=== PATIENT | male | born 1940 | race Caucasian/White ===

== ENCOUNTER 2016-06-22 13:29 | Outpatient (CLI) | payer MEDICARE, OTHER | END 2016-06-22 13:30 | disposition home or self-care (01) | DX: I48.92 Unspecified atrial flutter (principal); Z79.01 Long term (current) use of anticoagulants; Z79.899 Other long term (current) drug therapy ==

== ENCOUNTER 2016-07-27 13:37 | Outpatient (CLI) | payer MEDICARE, OTHER | END 2016-07-27 13:38 | disposition home or self-care (01) | DX: I48.92 Unspecified atrial flutter (principal); Z79.01 Long term (current) use of anticoagulants; Z79.899 Other long term (current) drug therapy ==

== ENCOUNTER 2016-09-07 15:16 | Outpatient (CLI) | payer MEDICARE, OTHER | END 2016-09-07 15:17 | disposition home or self-care (01) | DX: I25.2 Old myocardial infarction (principal); I48.92 Unspecified atrial flutter ==

== ENCOUNTER 2016-09-21 11:00 | Outpatient (CLI) | payer MEDICARE, OTHER | END 2016-09-21 11:01 | disposition home or self-care (01) | DX: G47.33 Obstructive sleep apnea (adult) (pediatric) (principal) | CPT/HCPCS: 99203; G0463 ==

== ENCOUNTER 2016-09-22 20:34 | Outpatient (CLI) | payer MEDICARE, OTHER | END 2016-09-22 20:35 | disposition home or self-care (01) | DX: G47.33 Obstructive sleep apnea (adult) (pediatric) (principal); Z68.34 Body mass index [BMI] 34.0-34.9, adult ==

== ENCOUNTER 2016-09-29 14:26 | Outpatient (CLI) | payer MEDICARE, OTHER | END 2016-09-29 14:27 | disposition home or self-care (01) | DX: G47.33 Obstructive sleep apnea (adult) (pediatric) (principal) | CPT/HCPCS: 99213; G0463 ==

== ENCOUNTER 2016-10-01 14:07 | Outpatient (CLI) | payer MEDICARE, OTHER | END 2016-10-01 23:59 | DX: I48.92 Unspecified atrial flutter (principal); Z79.01 Long term (current) use of anticoagulants; Z79.899 Other long term (current) drug therapy ==

== ENCOUNTER 2016-10-07 21:12 | Outpatient (CLI) | payer MEDICARE, OTHER | END 2016-10-07 21:13 | disposition home or self-care (01) | DX: G47.33 Obstructive sleep apnea (adult) (pediatric) (principal); R09.02 Hypoxemia; Z68.34 Body mass index [BMI] 34.0-34.9, adult ==

== ENCOUNTER 2016-10-21 08:59 | Outpatient (CLI) | payer MEDICARE, OTHER | END 2016-10-21 09:00 | disposition home or self-care (01) | LOC: SC 08:59 | PROVIDERS: ATTEND Nurse Practitioner Family | DX: G47.33 Obstructive sleep apnea (adult) (pediatric) (principal); R09.02 Hypoxemia | CPT/HCPCS: 99214; G0463; 99212 ==

== ENCOUNTER 2016-11-08 13:20 | Outpatient (CLI) | payer MEDICARE, OTHER | END 2016-11-08 13:21 | disposition home or self-care (01) | LOC: LAB.F 13:20 | PROVIDERS: ATTEND Internal Medicine Cardiovascular Disease | DX: I48.92 Unspecified atrial flutter (principal); Z79.01 Long term (current) use of anticoagulants; Z79.899 Other long term (current) drug therapy | CPT/HCPCS: 85610 ==

== ENCOUNTER 2016-12-09 13:02 | Outpatient (CLI) | payer MEDICARE, OTHER | END 2016-12-09 13:03 | disposition home or self-care (01) | LOC: SC 13:02 | PROVIDERS: ATTEND Nurse Practitioner Family | DX: G47.33 Obstructive sleep apnea (adult) (pediatric) (principal); R09.02 Hypoxemia | CPT/HCPCS: 99214; G0463; 99212 ==

== ENCOUNTER 2016-12-20 10:27 | Outpatient (CLI) | payer MEDICARE, OTHER ==
--- NOTE | 2016-12-21 08:30 | XRAY Report ---
CHEST, PA AND LATERAL: 12/20/2016 CLINICAL HISTORY: Shortness of breath on exertion. COMPARISON: 05/14/2013 FINDINGS: Sternal wire sutures are seen. Mild anterior spurring is noted in the thoracic spine with minimal disk space narrowing in the mid thoracic spine. Borderline heart size is noted with vascular calcification of the aortic arch. Mediastinum is not wi dened. Pulmonary parenchyma appears improved as compared to preceding exam. Thickening of the fissu res is no longer evident. Decrease in previously noted mild interstitial parenchymal disease in the right lower lobe is noted. Present exam demonstrates no significant congestive heart failure. No pn eumonia is seen. There is a suggestion of some minor granulomatous calcifications in and about each hilar region. IMPRESSION: 1. BORDERLINE HEART SIZE WITH STERNAL WIRE SUTURES SEEN. 2. IMPROVEMENT IS NOTED IN THE LUNGS COMPARED TO PRECEDING EXAM DATED 05/14/2013. CONGESTIVE HEA RT FAILURE AND PNEUMONIA ARE NOT SEEN. 3. MINIMAL EVIDENCE OF OLD GRANULOMATOUS DISEASE. JOB #: [id number] EXT JOB #:[id number]
== END 2016-12-20 10:28 | disposition home or self-care (01) ==
LOC: LAB.F 10:27
PROVIDERS: ATTEND Internal Medicine Cardiovascular Disease
DX: I48.92 Unspecified atrial flutter (principal); Z79.01 Long term (current) use of anticoagulants; Z79.899 Other long term (current) drug therapy; J84.89 Other specified interstitial pulmonary diseases; R06.00 Dyspnea, unspecified
CPT/HCPCS: 36415; 71020; 80048; 83880; 85610

== ENCOUNTER 2016-12-20 13:29 | Outpatient (CLI) | payer MEDICARE, OTHER ==
[2016-12-20 19:07] LABS: CALCIUM 9.1 mg/dL (8.5-10.3); CREATININE 1.7 mg/dL (0.6-1.2); POTASSIUM 4.2 mmol/L (3.5-5.0)
== END 2016-12-20 13:30 | disposition home or self-care (01) ==
LOC: LAB.S 13:29
PROVIDERS: ATTEND Nurse Practitioner Family
DX: R06.00 Dyspnea, unspecified (principal)
CPT/HCPCS: 36415; 80048; 83880

== ENCOUNTER 2017-01-10 13:34 | Outpatient (CLI) | payer MEDICARE, OTHER | END 2017-01-10 13:35 | disposition home or self-care (01) | LOC: SC 13:34 | PROVIDERS: ATTEND Nurse Practitioner Family | DX: G47.33 Obstructive sleep apnea (adult) (pediatric) (principal) | CPT/HCPCS: 99214; G0463; 99212 ==

== ENCOUNTER 2017-01-11 15:57 | Emergency (ER) | payer MEDICARE, OTHER ==
[2017-01-11 16:33] LABS: BASOPHILS # (AUTO) 0.2 10^3/uL (0.0-0.1); BASOPHILS % (AUTO) 1.9 %; EOSINOPHILS # (AUTO) 0.4 10^3/uL (0.0-0.7); HCT - HEMATOCRIT 35.9 % (42.0-52.0); HGB - HEMOGLOBIN 12.1 g/dL (14.0-18.0); LYMPHOCYTES # (AUTO) 4.3 10^3/uL (1.5-3.5); LYMPHOCYTES % (AUTO) 35.8 %; MEAN CORPUSCULAR HEMOGLOBIN 32.8 pg (27.0-31.0); MEAN CORPUSCULAR HGB CONC 33.7 g/dL (32.0-36.0); MEAN CORPUSCULAR VOLUME 97.3 fL (80.0-94.0); MEAN PLATELET VOLUME 8.7 fL (7.4-11.4); MONOCYTES # (AUTO) 1.4 10^3/uL (0.0-1.0); MONOCYTES % (AUTO) 11.4 %; NEUTROPHILS # (AUTO) 5.8 10^3/uL (1.5-6.6); NEUTROPHILS % (AUTO) 47.9 %; RED BLOOD COUNT 3.69 10^6/uL (4.70-6.10); RED CELL DISTRIBUTION WIDTH 14.7 % (12.0-15.0); UNCORRECTED WHITE BLOOD COUNT 12.1 x10^3/uL; WHITE BLOOD COUNT 12.1 x10^3/uL (4.8-10.8)
[2017-01-11 16:47] LABS: ALBUMIN/GLOBULIN RATIO 1.2 (1.0-2.2); BILIRUBIN,TOTAL 0.4 mg/dL (0.2-1.0); CREATININE 1.4 mg/dL (0.6-1.2); POTASSIUM 4.4 mmol/L (3.5-5.0)
--- NOTE | 2017-01-11 17:22 | ED Physician Documentation ---
History of Present Illness - Stated complaint Stated Complaint: CHEST PX/ WEAKNESS - Chief complaint Chief Complaint: Cardiac - Additonal information Additional information: hx from pt 76 male severe heart dz s/p triple CABG 2 stents and ballon angioplasty take imdur and renexa daily for chronic angina last three days has had new and fif chest pressure with exertion relieved by rest lasting up to 2 hr at a time no sig SOA, no dipahoresis NV always has kim pain but no new neck back abd pain no travel no new leg swelling Review of Systems Constitutional: denies: Fever, Chills Cardiac: reports: Chest pain / pressure Respiratory: denies: Dyspnea GI: denies: Abdominal Pain, Nausea, Vomiting Musculoskeletal: reports: Extremity swelling (not new) Neurologic: denies: Generalized weakness Endocrine: denies: Easy bruising / bleeding Immunocompromised: denies: Immunocompromised PD PAST MEDICAL HISTORY - Past Medical History Cardiovascular: Hypertension, Coronary artery disease Respiratory: CPAP use Endocrine/Autoimmune: Type 2 diabetes GI: Ulcers HEENT: Chronic sinusitis Psych: None Musculoskeletal: None Derm: None - Past Surgical History Past Surgical History: Yes General: Splenectomy Ortho: Arthroscopic surgery Cardiovascular: CABG, Coronary stent HEENT: Tonsil/Adenoidectomy - Present Medications Home Medications: Ambulatory Orders Medication Instructions Recorded Confirmed Atenolol 25 mg PO DAILY 11/09/12 01/11/17 Glyburide 2.5 mg PO DAILY 11/09/12 01/11/17 Hydrochlorothiazide 25 mg PO DAILY 11/09/12 01/11/17 Losartan [Cozaar] 50 mg PO DAILY 11/09/12 01/11/17 Metformin HCl 1,000 mg PO DAILY 11/09/12 01/11/17 Metformin HCl [Glucophage Xr] 500 mg PO HS 11/09/12 01/11/17 Pravastatin Sodium 40 mg PO HS 11/09/12 01/11/17 Clopidogrel [Plavix] 75 mg PO DAILY 01/11/17 01/11/17 Warfarin Sodium [Coumadin] 6 mg PO 01/11/17 - Allergies Allergies/Adverse Reactions: Allergies Allergy/AdvReac Type Severity Reaction Status Date / Time No Known Drug Allergies Allergy Verified 01/11/17 16:04 - Social History Does the pt smoke?: Yes Smoking Status: Former smoker Does the pt drink ETOH?: No Does the pt have substance abuse?: No - Immunizations Immunizations are current?: Yes PD ED PE NORMAL - Vitals Vital signs reviewed: Yes (rr is not 75) - General General: Alert and oriented X 3 - Cardiac Cardiac: RRR - Respiratory Respiratory: No respiratory distress, Clear bilaterally - Abdomen Abdomen: Soft, Non tender - Derm Derm: Normal color - Extremities Extremities: No deformity, Other (mild pepe symm edema s TTP) - Neuro Neuro: Alert and oriented X 3 Results - Vitals Vitals: Vital Signs - 24 hr 01/11/17 01/11/17 16:01 17:57 Temperature 36.6 C 36.6 C Heart Rate 75 72 Respiratory 75 H 15 Rate Blood Pressure 144/79 H 136/56 H O2 Saturation 96 95 Oxygen O2 Source Room air - EKG (time done) 1617 Rate: Rate (enter#) (71) Rhythm: NSR Intervals: LBBB - Labs Labs: Laboratory Tests 01/11/17 01/11/17 01/11/17 16:10 16:10 16:10 WBC 12.1 H RBC 3.69 L Hgb 12.1 L Hct 35.9 L MCV 97.3 H MCH 32.8 H MCHC 33.7 RDW 14.7 Plt Count 342 MPV 8.7 Neut # 5.8 Lymph # 4.3 H Schuyler # 1.4 H Eos # 0.4 Baso # 0.2 H Absolute Nucleated RBC 0.01 Nucleated RBCs 0.0 Whole Blood INR Sodium 135 Potassium 4.4 Chloride 103 Carbon Dioxide 24 Anion Gap 8.0 BUN 29 H Creatinine 1.4 H Estimated GFR (MDRD) 49 L Glucose 116 H Calcium 9.0 Total Bilirubin 0.4 AST 20 ALT 17 Alkaline Phosphatase 53 Troponin I < 0.04 Total Protein 7.0 Albumin 3.8 Globulin 3.2 Albumin/Globulin Ratio 1.2 Lipase 31 01/11/17 18:22 WBC RBC Hgb Hct MCV MCH MCHC RDW Plt Count MPV Neut # Lymph # Schuyler # Eos # Baso # Absolute Nucleated RBC Nucleated RBCs Whole Blood INR 2.4 H Sodium Potassium Chloride Carbon Dioxide Anion Gap BUN Creatinine Estimated GFR (MDRD) Glucose Calcium Total Bilirubin AST ALT Alkaline Phosphatase Troponin I Total Protein Albumin Globulin Albumin/Globulin Ratio Lipase - Rads (name of study) cxr Radiology: See rad report (nacpd) PD MEDICAL DECISION MAKING - ED course ED course: exertional angina beyond his baseline stable angina already on plavix coumadin BB agata and fabrizio feel this complex cardiac pt exceed the care available at (may need a cath) so called and spoke to cardio production team advisor Dr Rascon who accepts pt in transfer pt is pain free at rest in the ER at this time - already on all the above meds - so no need to give asa BB nitro heparin etc unless sx change Departure - Departure Disposition: 02 Transfer Acute Care Hosp Clinical Impression: Unstable angina
[2017-01-11 17:58] VITALS: BP 136/56
--- NOTE | 2017-01-11 18:16 | XRAY Preliminary Report ---
Exam: XR Chest 1 View IMPRESSION: No acute intrathoracic plain film abnormality. [facility] SITE ID: [id number]
--- NOTE | 2017-01-11 18:19 | XRAY Report ---
EXAM: CHEST RADIOGRAPHY EXAM DATE: 01/11/2017 05:07 PM. CLINICAL HISTORY: Chest pain. COMPARISON: None. TECHNIQUE: 1 view. FINDINGS: Lungs/Pleura: No focal opacities evident. No pleural effusion. No pneumothorax. Mediastinum: Patient has undergone median sternotomy. There is cardiomegaly. There is thoracic aortic calcification. Other: None. IMPRESSION: No acute intrathoracic plain film abnormality. [facility] Referring Provider Line: [phone] SITE ID: [id number]
== END 2017-01-11 20:10 | disposition short-term general hospital (02) ==
LOC: ED 15:57
DX: I25.110 Atherosclerotic heart disease of native coronary artery with unstable angina pectoris (principal); Z95.1 Presence of aortocoronary bypass graft; Z79.01 Long term (current) use of anticoagulants; I44.7 Left bundle-branch block, unspecified; R94.31 Abnormal electrocardiogram [ECG] [EKG]; I10 Essential (primary) hypertension; E11.9 Type 2 diabetes mellitus without complications; Z79.84 Long term (current) use of oral hypoglycemic drugs; Z87.11 Personal history of peptic ulcer disease; Z87.891 Personal history of nicotine dependence
CPT/HCPCS: 36415; 71010; 80053; 83690; 84484; 85025; 85610; 93005; 99283; 99284

== ENCOUNTER 2017-01-11 20:12 | Outpatient (CLI) | payer MEDICARE, OTHER | END 2017-01-11 20:13 | disposition short-term general hospital (02) | LOC: EMS 20:12 | PROVIDERS: ATTEND Surgery | DX: I20.0 Unstable angina (principal) | CPT/HCPCS: A0425; A0428 ==

== ENCOUNTER 2017-01-19 15:14 | Outpatient (CLI) | payer MEDICARE, OTHER | END 2017-01-19 15:15 | disposition home or self-care (01) | LOC: LAB.F 15:14 | PROVIDERS: ATTEND Nurse Practitioner Family | DX: I48.92 Unspecified atrial flutter (principal); Z79.01 Long term (current) use of anticoagulants; Z79.899 Other long term (current) drug therapy | CPT/HCPCS: 85610 ==

== ENCOUNTER 2017-01-21 11:51 | Outpatient (CLI) | payer MEDICARE, OTHER | END 2017-01-21 11:52 | disposition home or self-care (01) | LOC: LAB 11:51 | PROVIDERS: ATTEND Internal Medicine Cardiovascular Disease | DX: I48.92 Unspecified atrial flutter (principal); Z79.01 Long term (current) use of anticoagulants; Z79.899 Other long term (current) drug therapy | CPT/HCPCS: 85610 ==

== ENCOUNTER 2017-01-26 13:18 | Outpatient (CLI) | payer MEDICARE, OTHER ==
[2017-01-26] MEDS ORDERED: ALBUTEROL NEB 2.5 MG/3 ML INH ONE (15:00)
== END 2017-01-26 13:19 | disposition home or self-care (01) ==
LOC: RT 13:18
PROVIDERS: ATTEND Nurse Practitioner Family
DX: J44.9 Chronic obstructive pulmonary disease, unspecified (principal); R06.09 Other forms of dyspnea
CPT/HCPCS: 94060; 94664; 94729; J7613

== ENCOUNTER 2017-01-31 08:00 | Outpatient (CLI) | payer MEDICARE, OTHER | END 2017-01-31 08:01 | disposition home or self-care (01) | LOC: LAB.F 08:00 | PROVIDERS: ATTEND Internal Medicine Cardiovascular Disease | DX: I48.92 Unspecified atrial flutter (principal); Z79.01 Long term (current) use of anticoagulants; Z79.899 Other long term (current) drug therapy | CPT/HCPCS: 85610 ==

== ENCOUNTER 2017-02-15 11:21 | Outpatient (CLI) | payer MEDICARE, OTHER | END 2017-02-15 11:22 | disposition home or self-care (01) | LOC: LAB 11:21 | PROVIDERS: ATTEND Internal Medicine Cardiovascular Disease | DX: I48.92 Unspecified atrial flutter (principal); Z79.01 Long term (current) use of anticoagulants; Z79.899 Other long term (current) drug therapy | CPT/HCPCS: 85610 ==

== ENCOUNTER 2017-03-03 10:46 | Outpatient (CLI) | payer MEDICARE, OTHER | END 2017-03-03 10:47 | disposition home or self-care (01) | LOC: LAB.F 10:46 | PROVIDERS: ATTEND Internal Medicine Cardiovascular Disease | DX: I48.92 Unspecified atrial flutter (principal); Z79.01 Long term (current) use of anticoagulants; Z79.899 Other long term (current) drug therapy | CPT/HCPCS: 85610 ==

== ENCOUNTER 2017-03-24 10:52 | Outpatient (CLI) | payer MEDICARE, OTHER | END 2017-03-24 10:53 | disposition home or self-care (01) | LOC: LAB.F 10:52 | PROVIDERS: ATTEND Internal Medicine Cardiovascular Disease | DX: I48.92 Unspecified atrial flutter (principal); Z79.01 Long term (current) use of anticoagulants; Z79.899 Other long term (current) drug therapy | CPT/HCPCS: 85610 ==

== ENCOUNTER 2017-04-19 09:36 | Outpatient (CLI) | payer MEDICARE, OTHER | END 2017-04-19 09:37 | disposition home or self-care (01) | LOC: LAB.F 09:36 | PROVIDERS: ATTEND Internal Medicine Cardiovascular Disease | DX: I48.92 Unspecified atrial flutter (principal); Z79.01 Long term (current) use of anticoagulants; Z79.899 Other long term (current) drug therapy | CPT/HCPCS: 85610 ==

== ENCOUNTER 2017-05-09 09:58 | Outpatient (CLI) | payer MEDICARE, OTHER | END 2017-05-09 09:59 | disposition home or self-care (01) | LOC: LAB.F 09:58 | PROVIDERS: ATTEND Internal Medicine Cardiovascular Disease | DX: I48.92 Unspecified atrial flutter (principal); Z79.01 Long term (current) use of anticoagulants; Z79.899 Other long term (current) drug therapy | CPT/HCPCS: 85610 ==

== ENCOUNTER 2017-05-27 10:05 | Outpatient (CLI) | payer MEDICARE, OTHER ==
[2017-05-27 18:17] LABS: CREATININE 1.5 mg/dL (0.6-1.2); POTASSIUM 4.9 mmol/L (3.5-5.0)
== END 2017-05-27 10:06 | disposition home or self-care (01) ==
LOC: LAB.F 10:05
PROVIDERS: ATTEND Nurse Practitioner Family
DX: N18.3 Chronic kidney disease, stage 3 (moderate) (principal); I48.92 Unspecified atrial flutter; E11.9 Type 2 diabetes mellitus without complications
CPT/HCPCS: 36415; 80048; 85610

== ENCOUNTER 2017-06-03 09:44 | Outpatient (CLI) | payer MEDICARE, OTHER | END 2017-06-03 09:45 | disposition home or self-care (01) | LOC: LAB.F 09:44 | PROVIDERS: ATTEND Internal Medicine Cardiovascular Disease | DX: I48.92 Unspecified atrial flutter (principal); Z79.01 Long term (current) use of anticoagulants; Z79.899 Other long term (current) drug therapy | CPT/HCPCS: 85610 ==

== ENCOUNTER 2017-06-14 09:46 | Outpatient (CLI) | payer MEDICARE, OTHER | END 2017-06-14 09:47 | disposition home or self-care (01) | LOC: LAB.F 09:46 | PROVIDERS: ATTEND Internal Medicine Cardiovascular Disease | DX: I48.92 Unspecified atrial flutter (principal); Z79.01 Long term (current) use of anticoagulants; Z79.899 Other long term (current) drug therapy | CPT/HCPCS: 85610 ==

== ENCOUNTER 2017-06-28 08:58 | Outpatient (CLI) | payer MEDICARE, OTHER ==
[2017-06-28 09:47] LABS: CREATININE 1.4 mg/dL (0.6-1.2)
== END 2017-06-28 08:59 | disposition home or self-care (01) ==
LOC: LAB 08:58
PROVIDERS: ATTEND Internal Medicine Cardiovascular Disease
DX: I10 Essential (primary) hypertension (principal); I48.92 Unspecified atrial flutter; I25.10 Atherosclerotic heart disease of native coronary artery without angina pectoris; Z79.01 Long term (current) use of anticoagulants; Z79.899 Other long term (current) drug therapy
CPT/HCPCS: 36415; 80048; 85610

== ENCOUNTER 2017-07-19 10:36 | Outpatient (CLI) | payer MEDICARE, OTHER | END 2017-07-19 10:37 | disposition home or self-care (01) | LOC: LAB.F 10:36 | PROVIDERS: ATTEND Internal Medicine Cardiovascular Disease | DX: I48.92 Unspecified atrial flutter (principal); Z79.01 Long term (current) use of anticoagulants; Z79.899 Other long term (current) drug therapy | CPT/HCPCS: 85610 ==

== ENCOUNTER 2017-07-29 14:43 | Emergency (ER) | payer MEDICARE, OTHER ==
--- NOTE | 2017-07-29 16:06 | XRAY Report ---
EXAM: CHEST RADIOGRAPHY EXAM DATE: 07/29/2017 04:00 PM. CLINICAL HISTORY: Shortness of breath. Cough for 2-3 weeks. Intermittent fever. COMPARISON: None. TECHNIQUE: 2 views. FINDINGS: Lungs/Pleura: No focal opacities evident. No pleural effusion. No pneumothorax. Normal volumes. Mediastinum: Prior bypass. Normal heart size. Heavily calcified nondilated aortic arch. Other: No compression fractures. IMPRESSION: Prior bypass, otherwise unremarkable 2-view chest radiography. [facility] Referring Provider Line: [phone] SITE ID: [id number]
--- NOTE | 2017-07-29 16:44 | ED Physician Documentation ---
PD HPI URI - Stated complaint Stated Complaint: POSS PNEUMONIA - Chief complaint Chief Complaint: Resp - History obtained from History obtained from: Patient - History of Present Illness Timing duration: Weeks (2) Timing details: Still present Associated symptoms: Fever, Productive cough. No: Chest pain, Dyspnea Contributing factors: COPD / asthma Similar symptoms before: Diagnosis (History of pneumonia twice in the past.) - Additional information Additional information: The patient is a 76-year-old male with history of pneumonia, COPD, type 2 diabetes, coronary artery disease, status post CABG, congestive heart failure, atrial fibrillation, on warfarin, who presents with cough of 2 weeks' duration. His cough is productive of scant sputum. He reports fever as high as 102. He denies chest pain, shortness of breath, headache, sore throat, nausea or vomiting. He is concerned about the possibility of pneumonia since he has had pneumonia twice in the past. He stopped smoking cigarettes in 1985. Review of Systems Constitutional: reports: Fever Nose: denies: Congestion Throat: denies: Sore throat Cardiac: denies: Chest pain / pressure Respiratory: reports: Cough. denies: Dyspnea GI: denies: Abdominal Pain, Nausea, Vomiting : denies: Dysuria Skin: denies: Rash Musculoskeletal: denies: Extremity swelling Neurologic: denies: Focal weakness, Numbness, Headache PD PAST MEDICAL HISTORY - Past Medical History Past Medical History: Yes Cardiovascular: Hypertension, High cholesterol, Coronary artery disease, Angina , [place], Atrial fibrillation Respiratory: COPD, Pneumonia, Shortness of breath, Sleep apnea, CPAP use, Other Endocrine/Autoimmune: Type 2 diabetes GI: Ulcers : None HEENT: Chronic sinusitis Psych: None Musculoskeletal: None Derm: None - Past Surgical History Past Surgical History: Yes General: Splenectomy, Colonoscopy Ortho: Arthroscopic surgery Cardiovascular: CABG, Coronary stent HEENT: Tonsil/Adenoidectomy - Present Medications Home Medications: Ambulatory Orders Medication Instructions Recorded Confirmed Atenolol 25 mg PO DAILY 11/09/12 01/11/17 Glyburide 2.5 mg PO DAILY 11/09/12 01/11/17 Losartan [Cozaar] 50 mg PO DAILY 11/09/12 01/11/17 Metformin HCl 1,000 mg PO DAILY 11/09/12 01/11/17 Metformin HCl [Glucophage Xr] 500 mg PO HS 11/09/12 01/11/17 Pravastatin Sodium 40 mg PO HS 11/09/12 01/11/17 Clopidogrel [Plavix] 75 mg PO DAILY 01/11/17 01/11/17 Isosorbide Mononitrate [Isosorbide 01/11/17 Mononitrate ER] Ranolazine [Ranexa] 1,000 mg PO DAILY 01/11/17 01/11/17 Warfarin Sodium [Coumadin] 6 mg PO 01/11/17 Benzonatate [Tessalon Perle] 100 mg PO BID PRN #10 capsule 07/29/17 Doxycycline Monohydrate 100 mg PO BID #14 tablet 07/29/17 Furosemide [Lasix] 07/29/17 - Allergies Allergies/Adverse Reactions: Allergies Allergy/AdvReac Type Severity Reaction Status Date / Time No Known Drug Allergies Allergy Verified 07/29/17 16:06 - Social History Does the pt smoke?: No Smoking Status: Former smoker Does the pt drink ETOH?: No Does the pt have substance abuse?: No - Immunizations Immunizations are current?: Yes - POLST Patient has POLST: No PD ED PE NORMAL - Vitals Vital signs reviewed: Yes (normal) - General General: Alert and oriented X 3, Well developed/nourished, Other (Coarse- sounding cough.) - HEENT HEENT: Atraumatic, EOMI, Moist mucous membranes, Pharynx benign - Neck Neck: Supple, no meningeal sign, No adenopathy, No JVD - Cardiac Cardiac: RRR - Respiratory Respiratory: Clear bilaterally (Without wheezes, rales, or rhonchi.) - Abdomen Abdomen: Soft, Non tender, Other (Rotund abdomen.) - Back Back: No CVA TTP - Derm Derm: No rash - Neuro Neuro: Alert and oriented X 3, No motor deficit, Normal speech Results - Vitals Vitals: Oxygen O2 Source Room air - Rads (name of study) CXR Radiology: Prelim report reviewed, EMP read contemporaneously, See rad report ( Prior cardiac surgery, otherwise unremarkable two-view chest.) PD MEDICAL DECISION MAKING - ED course Complexity details: reviewed old records, reviewed results, re-evaluated patient , considered differential, d/w patient ED course: The patient's presentation is most consistent with acute bronchitis. Chest x- ray reveals no evidence of pneumonia, and his respiratory status reveals adequate oxygenation and ventilation. His presentation does not suggest congestive heart failure, and I doubt pulmonary embolus. Treatment in the emergency department included administration of doxycycline 100 mg orally. He is being discharged with prescription for doxycycline and for Tessalon Perles. I discussed with him the expected course of illness, antibiotic treatment and outpatient follow-up, as well as potentially worrisome signs or symptoms that should prompt reevaluation in the emergency department. Departure - Departure Disposition: 01 Home, Self Care Clinical Impression: Bronchitis Condition: Stable Instructions: ED COPD Flare Follow-Up: Thea Eid ARNP [Provider Admit Priv/Credential] - Prescriptions: Benzonatate [Tessalon Perle] 100 mg PO BID PRN #10 capsule PRN Reason: Cough Doxycycline Monohydrate 100 mg PO BID #14 tablet Comments: Take doxycycline twice daily as prescribed. You can use Tessalon as prescribed if needed for cough. Follow up with your primary physician within 1-2 weeks. Call to schedule an appointment. Return to the emergency room if you develop increasing difficulty breathing, or otherwise worsening symptoms. Discharge Date/Time: 07/29/17 17:10
[2017-07-29] MEDS ORDERED: DOXYCYCLINE 100 MG TABLET PO STA (16:46)
[2017-07-29 16:54] VITALS: BP 136/65
== END 2017-07-29 17:10 | disposition home or self-care (01) ==
LOC: ED 14:43
DX: J40 Bronchitis, not specified as acute or chronic (principal); E11.9 Type 2 diabetes mellitus without complications; I25.10 Atherosclerotic heart disease of native coronary artery without angina pectoris; I11.0 Hypertensive heart disease with heart failure; I50.9 Heart failure, unspecified; I48.91 Unspecified atrial fibrillation; I25.2 Old myocardial infarction; Z79.01 Long term (current) use of anticoagulants; Z95.1 Presence of aortocoronary bypass graft; Z95.5 Presence of coronary angioplasty implant and graft; Z79.84 Long term (current) use of oral hypoglycemic drugs
CPT/HCPCS: 71046; 99283; A9270

== ENCOUNTER 2017-08-04 14:09 | Outpatient (CLI) | payer MEDICARE, OTHER | END 2017-08-04 14:10 | disposition home or self-care (01) | LOC: LAB 14:09 | PROVIDERS: ATTEND Internal Medicine Cardiovascular Disease | DX: I48.92 Unspecified atrial flutter (principal); Z79.01 Long term (current) use of anticoagulants; Z79.899 Other long term (current) drug therapy | CPT/HCPCS: 85610 ==

== ENCOUNTER 2017-08-12 13:54 | Outpatient (CLI) | payer MEDICARE, OTHER | END 2017-08-12 13:55 | disposition home or self-care (01) | LOC: LAB 13:54 | PROVIDERS: ATTEND Internal Medicine Cardiovascular Disease | DX: I48.92 Unspecified atrial flutter (principal); Z79.01 Long term (current) use of anticoagulants; Z79.899 Other long term (current) drug therapy | CPT/HCPCS: 85610 ==

== ENCOUNTER 2017-09-22 16:42 | Outpatient (CLI) | payer MEDICARE, OTHER ==
[2017-09-22 17:16] LABS: HEMOGLOBIN A1C 0.58 g/dL; HEMOGLOBIN A1C % 6.2 % (4.6-6.2)
[2017-09-22 17:18] LABS: ALBUMIN 4.3 g/dL (3.2-5.5); ALBUMIN/GLOBULIN RATIO 1.3 (1.0-2.2); ALKALINE PHOSPHATASE 50 IU/L (42-121); ALT ALANINE AMINOTRANSFERASE 19 IU/L (10-60); AST ASPARTATE AMINOTRANSFERASE 17 IU/L (10-42); BILIRUBIN,TOTAL 0.6 mg/dL (0.2-1.0); BUN - BLOOD UREA NITROGEN 25 mg/dL (6-20); CALCIUM 9.1 mg/dL (8.5-10.3); CARBON DIOXIDE - CO2 26 mmol/L (21-32); CHLORIDE 101 mmol/L (101-111); CHOL/HDL RATIO 3.9 (<5.0); CHOLESTEROL 124 mg/dL; CREATININE 1.2 mg/dL (0.6-1.2); GFR - MDRD 59 (>89); GLUCOSE 95 mg/dL (70-100); HDL CHOLESTEROL 32 mg/dL; LDL CHOLESTEROL,CALCULATED 68 mg/dL; LDL/HDL RATIO 2.1 (<3.6); SODIUM 135 mmol/L (135-145); TOTAL PROTEIN 7.6 g/dL (6.7-8.2); VLDL CHOLESTEROL 24 mg/dL
== END 2017-09-22 16:43 | disposition home or self-care (01) ==
LOC: LAB 16:42
PROVIDERS: ATTEND Nurse Practitioner Family
DX: E78.5 Hyperlipidemia, unspecified (principal); E11.9 Type 2 diabetes mellitus without complications; I25.118 Atherosclerotic heart disease of native coronary artery with other forms of angina pectoris
CPT/HCPCS: 36415; 80053; 80061; 83036; 83721

== ENCOUNTER 2017-09-27 14:36 | Outpatient (CLI) | payer MEDICARE, OTHER | END 2017-09-27 14:37 | disposition home or self-care (01) | LOC: LAB 14:36 | PROVIDERS: ATTEND Internal Medicine Cardiovascular Disease | DX: I48.92 Unspecified atrial flutter (principal); Z79.01 Long term (current) use of anticoagulants; Z79.899 Other long term (current) drug therapy | CPT/HCPCS: 85610 ==

== ENCOUNTER 2017-10-25 11:17 | Outpatient (CLI) | payer MEDICARE, OTHER | END 2017-10-25 11:18 | disposition home or self-care (01) | LOC: LAB 11:17 | PROVIDERS: ATTEND Internal Medicine Cardiovascular Disease | DX: I48.92 Unspecified atrial flutter (principal); Z79.899 Other long term (current) drug therapy; Z79.01 Long term (current) use of anticoagulants | CPT/HCPCS: 85610 ==

== ENCOUNTER 2017-11-22 10:14 | Outpatient (CLI) | payer MEDICARE, OTHER | END 2017-11-22 10:15 | disposition home or self-care (01) | LOC: LAB 10:14 | PROVIDERS: ATTEND Internal Medicine Cardiovascular Disease | DX: I48.92 Unspecified atrial flutter (principal); Z79.01 Long term (current) use of anticoagulants; Z79.899 Other long term (current) drug therapy | CPT/HCPCS: 85610 ==

== ENCOUNTER 2017-12-05 13:37 | Outpatient (CLI) | payer MEDICARE, OTHER | END 2017-12-05 13:38 | disposition home or self-care (01) | LOC: LAB.F 13:37 | PROVIDERS: ATTEND Internal Medicine Cardiovascular Disease | DX: I48.92 Unspecified atrial flutter (principal); Z79.899 Other long term (current) drug therapy; Z79.01 Long term (current) use of anticoagulants | CPT/HCPCS: 85610 ==

== ENCOUNTER 2017-12-06 10:19 | Outpatient (CLI) | payer MEDICARE, OTHER ==
--- NOTE | 2017-12-06 10:53 | XRAY Report ---
Procedure Date: 12/06/2017 Accession Number: [id number] / [id number] Procedure: XRS - Chest 2 View X-Ray CPT Code: 94390 FULL RESULT: EXAM: Chest 2 View X-Ray DATE: 12/06/2017 10:39 AM CLINICAL HISTORY: COPD, ACUTE EXACERBATION COMPARISON: 07/29/2017 TECHNIQUE: 2 views. FINDINGS: Lungs/Pleura: No focal opacities evident. No pneumothorax or pleural effusion. Normal volumes. Mediastinum: Stable changes of previous cardiac surgery. Other: None. IMPRESSION: Stable postoperative changes. No significant interval change. [facility]
--- NOTE | 2017-12-06 10:53 | XRAY Report ---
Procedure Date: 12/06/2017 Accession Number: [id number] / [id number] Procedure: XRS - Ankle 3 View LT CPT Code: FULL RESULT: EXAM: Ankle 3 View LT DATE: 12/06/2017 10:38 AM CLINICAL HISTORY: COPD, ACUTE EXACERBATION, ACHILLES TENDINITIS, LEF COMPARISON: None. TECHNIQUE: 3 views. FINDINGS: Bones: Plantar calcaneal spurring. No evidence of acute fracture. Joints: Normal. No tibiotalar joint effusion. No subluxations. Soft Tissues: Posterior soft tissue swelling. IMPRESSION: Soft tissue swelling. No evidence of fracture. [facility]
== END 2017-12-06 10:20 | disposition home or self-care (01) ==
LOC: DI.S 10:19
PROVIDERS: ATTEND Nurse Practitioner Family
DX: J44.1 Chronic obstructive pulmonary disease with (acute) exacerbation (principal); M76.62 Achilles tendinitis, left leg
CPT/HCPCS: 71046

== ENCOUNTER 2017-12-12 14:41 | Outpatient (CLI) | payer MEDICARE, OTHER | END 2017-12-12 14:42 | disposition home or self-care (01) | LOC: LAB.F 14:41 | PROVIDERS: ATTEND Internal Medicine Cardiovascular Disease | DX: I48.92 Unspecified atrial flutter (principal); Z79.01 Long term (current) use of anticoagulants; Z79.899 Other long term (current) drug therapy | CPT/HCPCS: 85610 ==

== ENCOUNTER 2017-12-19 14:05 | Outpatient (CLI) | payer MEDICARE, OTHER | END 2017-12-19 14:06 | disposition home or self-care (01) | LOC: LAB.F 14:05 | PROVIDERS: ATTEND Internal Medicine Cardiovascular Disease | DX: I48.92 Unspecified atrial flutter (principal); Z79.01 Long term (current) use of anticoagulants; Z79.899 Other long term (current) drug therapy | CPT/HCPCS: 85610 ==

== ENCOUNTER 2018-01-09 12:34 | Outpatient (CLI) | payer MEDICARE, OTHER | END 2018-01-09 12:35 | disposition home or self-care (01) | LOC: DI 12:34 | PROVIDERS: ATTEND Internal Medicine Cardiovascular Disease | DX: I50.9 Heart failure, unspecified (principal) | CPT/HCPCS: 93306 ==

== ENCOUNTER 2018-01-10 14:20 | Outpatient (CLI) | payer MEDICARE, OTHER | END 2018-01-10 14:21 | disposition home or self-care (01) | LOC: LAB.F 14:20 | PROVIDERS: ATTEND Internal Medicine Cardiovascular Disease | DX: I48.92 Unspecified atrial flutter (principal) | CPT/HCPCS: 85610 ==

== ENCOUNTER 2018-01-26 10:01 | Outpatient (CLI) | payer MEDICARE, OTHER | END 2018-01-26 10:02 | disposition home or self-care (01) | LOC: SC 10:01 | PROVIDERS: ATTEND Nurse Practitioner Family | DX: G47.33 Obstructive sleep apnea (adult) (pediatric) (principal) | CPT/HCPCS: 99214; G0463; 99212 ==

== ENCOUNTER 2018-02-14 11:22 | Outpatient (CLI) | payer MEDICARE, OTHER | END 2018-02-14 11:23 | disposition home or self-care (01) | LOC: LAB.F 11:22 | PROVIDERS: ATTEND Internal Medicine Cardiovascular Disease | DX: I48.92 Unspecified atrial flutter (principal); Z79.01 Long term (current) use of anticoagulants; Z79.899 Other long term (current) drug therapy | CPT/HCPCS: 85610 ==

== ENCOUNTER 2018-03-03 13:06 | Outpatient (CLI) | payer MEDICARE, OTHER ==
[2018-03-03 18:18] LABS: HGB - HEMOGLOBIN 11.9 g/dL (14.0-18.0); MEAN CORPUSCULAR HEMOGLOBIN 33.1 pg (27.0-31.0); MEAN CORPUSCULAR HGB CONC 34.2 g/dL (32.0-36.0); MEAN CORPUSCULAR VOLUME 96.6 fL (80.0-94.0); MEAN PLATELET VOLUME 9.2 fL (7.4-11.4); RED BLOOD COUNT 3.59 10^6/uL (4.70-6.10); RED CELL DISTRIBUTION WIDTH 15.1 % (12.0-15.0)
== END 2018-03-03 13:07 | disposition home or self-care (01) ==
LOC: LAB.F 13:06
PROVIDERS: ATTEND Internal Medicine Cardiovascular Disease
DX: I25.2 Old myocardial infarction (principal)
CPT/HCPCS: 36415; 85027

== ENCOUNTER 2018-03-14 10:33 | Outpatient (CLI) | payer MEDICARE, OTHER | END 2018-03-14 10:34 | disposition home or self-care (01) | LOC: LAB.F 10:33 | PROVIDERS: ATTEND Internal Medicine Cardiovascular Disease | DX: I48.92 Unspecified atrial flutter (principal); Z79.01 Long term (current) use of anticoagulants; Z79.899 Other long term (current) drug therapy | CPT/HCPCS: 85610 ==

== ENCOUNTER 2018-04-11 13:03 | Outpatient (CLI) | payer MEDICARE, OTHER | END 2018-04-11 13:04 | disposition home or self-care (01) | LOC: LAB.F 13:03 | PROVIDERS: ATTEND Internal Medicine Cardiovascular Disease | DX: I48.92 Unspecified atrial flutter (principal); Z79.01 Long term (current) use of anticoagulants; Z79.899 Other long term (current) drug therapy | CPT/HCPCS: 85610 ==

== ENCOUNTER 2018-04-18 14:08 | Outpatient (CLI) | payer MEDICARE, OTHER ==
[2018-04-18 17:48] LABS: INR 1.8 (0.8-1.2); PT - PROTHROMBIN TIME 20.3 secs (9.9-12.6)
== END 2018-04-18 14:09 | disposition home or self-care (01) ==
LOC: LAB.F 14:08
PROVIDERS: ATTEND Internal Medicine Cardiovascular Disease
DX: I48.92 Unspecified atrial flutter (principal); Z79.01 Long term (current) use of anticoagulants; Z79.899 Other long term (current) drug therapy
CPT/HCPCS: 36415; 85610

== ENCOUNTER 2018-04-26 09:34 | Outpatient (CLI) | payer MEDICARE, OTHER ==
[2018-04-26 17:53] LABS: BASOPHILS # (AUTO) 0.1 10^3/uL (0.0-0.1); BASOPHILS % (AUTO) 0.6 %; EOSINOPHILS # (AUTO) 0.4 10^3/uL (0.0-0.7); EOSINOPHILS % (AUTO) 3.2 %; HGB - HEMOGLOBIN 12.5 g/dL (14.0-18.0); LYMPHOCYTES # (AUTO) 3.5 10^3/uL (1.5-3.5); LYMPHOCYTES % (AUTO) 31.8 %; MEAN CORPUSCULAR HEMOGLOBIN 32.7 pg (27.0-31.0); MEAN CORPUSCULAR VOLUME 99.3 fL (80.0-94.0); MEAN PLATELET VOLUME 9.2 fL (7.4-11.4); MONOCYTES # (AUTO) 1.2 10^3/uL (0.0-1.0); MONOCYTES % (AUTO) 10.6 %; NEUTROPHILS # (AUTO) 5.9 10^3/uL (1.5-6.6); NEUTROPHILS % (AUTO) 53.8 %; PLT - PLATELET COUNT 320 10^3/uL (130-450); RED BLOOD COUNT 3.83 10^6/uL (4.70-6.10); RED CELL DISTRIBUTION WIDTH 14.6 % (12.0-15.0)
[2018-04-26 18:13] LABS: ALBUMIN 4.1 g/dL (3.2-5.5); ALBUMIN/GLOBULIN RATIO 1.5 (1.0-2.2); ALKALINE PHOSPHATASE 47 IU/L (42-121); ALT ALANINE AMINOTRANSFERASE 21 IU/L (10-60); AST ASPARTATE AMINOTRANSFERASE 16 IU/L (10-42); BILIRUBIN,TOTAL 0.8 mg/dL (0.2-1.0); BUN - BLOOD UREA NITROGEN 32 mg/dL (6-20); CALCIUM 9.1 mg/dL (8.5-10.3); CARBON DIOXIDE - CO2 24 mmol/L (21-32); CHLORIDE 105 mmol/L (101-111); CHOL/HDL RATIO 3.6 (<5.0); CHOLESTEROL 123 mg/dL; CREATININE 1.4 mg/dL (0.6-1.2); GFR - MDRD 49 (>89); GLUCOSE 126 mg/dL (70-100); HDL CHOLESTEROL 34 mg/dL; LDL CHOLESTEROL,CALCULATED 63 mg/dL; LDL/HDL RATIO 1.9 (<3.6); SODIUM 138 mmol/L (135-145); TOTAL PROTEIN 6.8 g/dL (6.7-8.2); VLDL CHOLESTEROL 26 mg/dL
[2018-04-26 18:16] LABS: HB2 TOTAL 13.4 g/dL; HEMOGLOBIN A1C 0.56 g/dL
== END 2018-04-26 09:35 | disposition home or self-care (01) ==
LOC: LAB.F 09:34
PROVIDERS: ATTEND Nurse Practitioner Family
DX: I10 Essential (primary) hypertension (principal); E78.5 Hyperlipidemia, unspecified; I25.10 Atherosclerotic heart disease of native coronary artery without angina pectoris; E11.9 Type 2 diabetes mellitus without complications; I20.9 Angina pectoris, unspecified
CPT/HCPCS: 36415; 80053; 80061; 83036; 83721; 84443; 85025

== ENCOUNTER 2018-05-01 12:39 | Outpatient (CLI) | payer MEDICARE, OTHER | END 2018-05-01 12:40 | disposition home or self-care (01) | LOC: LAB.F 12:39 | PROVIDERS: ATTEND Internal Medicine Cardiovascular Disease | DX: I48.92 Unspecified atrial flutter (principal); Z79.899 Other long term (current) drug therapy; Z79.01 Long term (current) use of anticoagulants | CPT/HCPCS: 85610 ==

== ENCOUNTER 2018-05-15 13:37 | Outpatient (CLI) | payer MEDICARE, OTHER | END 2018-05-15 13:38 | disposition home or self-care (01) | LOC: LAB.F 13:37 | PROVIDERS: ATTEND Internal Medicine | DX: Z51.81 Encounter for therapeutic drug level monitoring (principal); Z79.01 Long term (current) use of anticoagulants; I48.92 Unspecified atrial flutter | CPT/HCPCS: 85610 ==

== ENCOUNTER 2018-06-12 13:07 | Outpatient (CLI) | payer MEDICARE, OTHER | END 2018-06-12 13:08 | disposition home or self-care (01) | LOC: LAB.F 13:07 | PROVIDERS: ATTEND Internal Medicine | DX: I48.92 Unspecified atrial flutter (principal) | CPT/HCPCS: 85610 ==

== ENCOUNTER 2018-06-19 12:45 | Outpatient (CLI) | payer MEDICARE, OTHER | END 2018-06-19 12:46 | disposition home or self-care (01) | LOC: LAB.F 12:45 | PROVIDERS: ATTEND Internal Medicine | DX: I48.92 Unspecified atrial flutter (principal) | CPT/HCPCS: 85610 ==

== ENCOUNTER 2018-07-03 12:48 | Outpatient (CLI) | payer MEDICARE, OTHER | END 2018-07-03 12:49 | disposition home or self-care (01) | LOC: LAB.F 12:48 | PROVIDERS: ATTEND Internal Medicine | DX: I48.92 Unspecified atrial flutter (principal) | CPT/HCPCS: 85610 ==

== ENCOUNTER 2018-07-24 12:16 | Outpatient (CLI) | payer MEDICARE, OTHER | END 2018-07-24 12:17 | disposition home or self-care (01) | LOC: LAB.F 12:16 | PROVIDERS: ATTEND Internal Medicine | DX: I48.92 Unspecified atrial flutter (principal) | CPT/HCPCS: 85610 ==

== ENCOUNTER 2018-08-21 13:48 | Outpatient (CLI) | payer MEDICARE, OTHER | END 2018-08-21 13:49 | disposition home or self-care (01) | LOC: LAB.F 13:48 | PROVIDERS: ATTEND Internal Medicine | DX: I48.92 Unspecified atrial flutter (principal) | CPT/HCPCS: 85610 ==